=== PATIENT | female | born 1975 | race Caucasian/White ===

== ENCOUNTER 2017-06-10 17:59 | Emergency (ER) | payer OTHER ==
[~2017-06-10] VITALS: Ht 170.2 cm; Wt 63.5 kg
[~2017-06-10 17:59] MED LIST: PHENERGAN 25MG.25 M1 PO
--- OUTSIDE RECORDS SUMMARY | 2017-06-10 18:04 | External Medical Summary Rpt | CCD ---
Author Author , DOMINIC ALFARO Address Unknown Phone [email or web address] Purpose Continuity of Care Document - through 2016
--- OUTSIDE RECORDS SUMMARY | 2017-06-10 18:04 | External Medical Summary Rpt | CCD ---
Demographics Preferred Language Brazilian Marital Status Unknown Mormon Affiliation Unknown Race Unknown Ethnic Group Unknown Author Author , DOMINIC ALFARO Address Unknown Phone Immunization No patient found.
--- OUTSIDE RECORDS SUMMARY | 2017-06-10 18:04 | External Medical Summary Rpt | CCD ---
Author Author [facility] Address Unknown Phone Unavailable Purpose Continuity of Care Document - through 2016
--- OUTSIDE RECORDS SUMMARY | 2017-06-10 18:04 | External Medical Summary Rpt | CCD ---
Author Author , DOMINIC ALFARO Address Unknown Phone [email or web address] Purpose Continuity of Care Document - through 2016
--- OUTSIDE RECORDS SUMMARY | 2017-06-10 18:04 | External Medical Summary Rpt | CCD ---
Demographics Preferred Language Japanese Marital Status Unknown Mormon Affiliation Unknown Race Unknown Ethnic Group Unknown Author Author , DOMINIC ALFARO Address Unknown Phone Immunization No patient found.
[2017-06-10] MEDS ORDERED: MECLIZINE HYDRO25 M2 PO (18:55)
[2017-06-10] MEDS ORDERED: MEDROL 4MG. DOSE4 MG PO (18:55)
[2017-06-10] MEDS ORDERED: CLARITIN-D 12HR1 T12 PO (18:55)
[2017-06-10] MEDS ORDERED: FLONASE 50 MCG16 GM (18:55)
--- NOTE | 2017-06-10 18:55 | Urgent Treatment Center Report ---
History of Present Issue Date/Time Seen by Provider 06/10/17 5695 Visit Reason Pt arrived:Walked Presenting Problem:C/O DIZZINESS, SINUS PRESSURE, AND DRAINAGE X1 WEEK Location if Accident: Onset of symptoms date/time:/ or onset unknown for:MEDICAL HX UNKNOWN Have you (or family members/close friends) recently traveled outside the [place]? N If Yes, where/when: Have you had exposure to infectious disease within the past month? TB? Other? Specify: c/o ear pressure x one week. Didn't think much of it. Minimal pain. Associated w / mild sinus pressure also. No fever. Denies cold symptoms. Today, dizziness started. Worried about ear infection causing dizziness. Worse w/ rapid head movement. No nausea. Better w/ rest. Denies fever. No treatment prior to arrival. Source patient Exam Limitations no limitations ALLERGIES Coded Allergies: No Known Allergies (06/10/17) Home Medications Reported Medications Promethazine Hydrochloride (Phenergan 25MG Tab) 25 MG PO Q4H PRN History Medical History General CAD? No Angina: No OK: No Hypertension? No Hyperlipidemia? No CHF? No DVT? No PE? No COPD? No Asthma? No Anemia? No GERD? No Gastric ulcers? No GI Bleed? No Hernia? No Thyroid Problems? No Hypothyroidism? No CVA? No Seizures? No Diabetes? No Renal Insuffiency? No UTI? No Stones? No BPH? No GB Disease: No Nephritic Syndrome? No Asplenia? No Hepatitis? No Sickle Cell Disease? No Arthritis? No Migraines? No Cataracts? No Glaucoma? No MRSA? No HIV? No TB? No Anxiety? No Depression? No Cancer? No More? No Immunization HX DT/Tetanus 5-10 YRS Surgical Hx Previous Surgery?Y LACERATIONS W/ DELIVERY Family History Family HX Diabetes No CAD No Hypertension No Hyperlipidemia No Cancer No TB No Social History Smoking Hx Smoker: Never Smoker Tobacco: No Packs/day N/A Alcohol Alcohol: No Review of Systems All Other Systems Reviewed and Negative Constitutional see HPI, denies chills, denies malaise Eyes denies drainage ENT see HPI. denies: ear discharge, nose discharge, nose congestion, throat pain. Respiratory denies cough Gastrointestinal denies no symptoms reported Musculoskeletal denies joint pain Skin denies rash Psychiatric/Neurological denies headache, denies weakness Physical Exam Vital Signs Vital Signs Date Time Temp Pulse Resp B/P Pulse O2 O2 Flow FiO2 Ox Delivery Rate 06/10 1808 99.2 92 20 130/96 96 General Appearance normal appearance, no apparent distress Eye Exam - bilateral eye normal exam Ear, Nose, Throat normal pharynx, shahram EAC and right TM unremarkable, left TM pearly garcia, bulging, nontender Neck non-tender, supple Respiratory Status No: respiratory distress, productive cough, non productive cough. Lung Sounds anterior: lungs clear. posterior: lungs clear. bilateral: lungs clear. Cardiovascular regular rate/rhythm, no peripheral edema, no murmur Neurologic alert, oriented x 3 Mental status normal mood/affect Skin normal color, warm/dry Lymphatic no adenopathy Medical Decision Making LABS/Meds/Orders Pt receiving controlled substance in ED? No Departure Departure Time of Disposition 1849 Disposition DC Home or Self Care(routine) Clinical Impression Primary Impression: Acute serous otitis media, left ear Qualifiers: Recurrence: not specified as recurrent Qualified Code: H65.02 - Acute serous otitis media, left ear Secondary Impressions: Vertigo Condition STABLE Referrals NO REFERRAL Follow up with primary care or return to [facility] IMM[facility]IATELY for new or worsening symptoms OR no noticeable improvement over the next 72 hours. Patient Instructions DI for Eustachian Tube Dysfunction-Adult, DI for Vertigo Additional Instructions * Eustachian tube dysfunction is when your tube doesn't allow fluid to drain and therefore, fluid backs up in ear behind ear drum. This can cause pain, dizziness , pressure, etc. * flonase 2 sprays each nostril daily but may take 2-3 days to notice improvement with it. * Start Claritin D * Start steroid today. * Meclizine as needed for vertigo, does not fix problem, only treats the vertigo feeling. WILL cause drowsiness Discharge Counseling Counseled pt/family regarding diagnosis, medications/RX, home care, follow up needs Prescriptions Current Visit Scripts Loratadine/Pseudoephedrine S (Claritin-D 12 Hour Tablet) 1 T12 PO BIDP PRN ear pressure/congestion #14 T12 Fluticasone Propionate (Flonase 50 Mcg Nasal [place]) 2 SPRAY NA DAILY #1 BOT Methylprednisolone (Medrol Dose Beatriz) 4 MG PO UD #1 BEATRIZ TAKE DIRECTED ON PACKAGING MECLIZINE HCL (ANTIVERT 25MG (generic)) 25 MG PO TIDP PRN vertigo #9 TAB WILL cause drowsiness at 1856
[2017-06-10 18:57] VITALS: BP 130/90
[2017-06-24] MEDS ORDERED: TAMIFLU 75MG CA75 MG PO ×2 (22:13→22:23)
[2017-06-24] MEDS ORDERED: LOPRESSOR 25MG.25 MG PO (22:14)
== END 2017-06-10 19:03 | disposition home or self-care (01) ==
LOC: UTC 17:59
DX: H65.02 Acute serous otitis media, left ear (principal); R42 Dizziness and giddiness